=== PATIENT | male | born 1970 | race Caucasian/White ===

== ENCOUNTER → 2017-05-12 | Outpatient (REF) ==
[2013-08-06 15:13] VITALS: BMI 24.4
== END ==
LOC: AUD 09:50
PROVIDERS: ATTEND Physician Assistant
DX: Z01.10 Encounter for examination of ears and hearing without abnormal findings (principal)
CPT/HCPCS: 92552

== ENCOUNTER → 2018-05-13 | Outpatient (REF) ==
[2013-08-06 15:13] VITALS: BMI 24.4
== END ==
LOC: AUD 08:45
PROVIDERS: ATTEND Physician Assistant
DX: Z01.12 Encounter for hearing conservation and treatment (principal)
CPT/HCPCS: 92552